=== PATIENT | male | born 1985 | race Caucasian/White ===

== ENCOUNTER 2017-11-18 20:59 | Emergency (ER) | payer SELFPAY ==
[~2017-11-18] VITALS: Ht 157.5 cm; Wt 70.3 kg
--- NOTE | 2017-11-18 22:30 | NUR ---
PT CAME FROM HOME C/O OF COUGH X 3 WEEKS WITH SEVERE PAIN ON THE BACK AND SIDES. DENIES CP, TRAUMA. VSS. SEEN BY DR. STREET FOR EVAL. DENIES FEVER. SAFETY AND COMFORT MEASURES PROVIDED. WILL MONITOR.
--- NOTE | 2017-11-18 23:15 | NUR ---
IV ACCESS STARTED. BLOOD DRAWN FOR LABS.
--- NOTE | 2017-11-18 23:26 | NUR ---
FAXED MED ORDER TO NURSING SUP.
[2017-11-18 23:27] LABS: BASOPHILS % (AUTO) 0.4 % (0.0-2.0); EOSINOPHILS # (AUTO) 0.1 /CMM (0.0-0.7); EOSINOPHILS % (AUTO) 1.1 % (0.0-6.0); HEMATOCRIT 43 % (39-51); HEMOGLOBIN 14.4 g/dL (13.5-17.5); LYMPHOCYTES # (AUTO) 1.2 /CMM (0.8-4.8); LYMPHOCYTES % (AUTO) 11.5 % (20.0-44.0); MEAN CORPUSCULAR HEMOGLOBIN 29 PG (26.0-33.0); MEAN CORPUSCULAR HGB CONC 34 g/dl (31.0-36.0); MEAN CORPUSCULAR VOLUME 86 fL (80-96); MONOCYTES # (AUTO) 1.4 /CMM (0.1-1.30); MONOCYTES % (AUTO) 13.3 % (2.0-12.0); NEUTROPHILS # (AUTO) 7.7 /CMM (1.8-8.9); NEUTROPHILS % (AUTO) 73.7 % (43.0-81.0); PLATELET COUNT (AUTO) 301 /CMM (150-450); RDW COEFFICIENT OF VARIATION 13.8 (11.5-15.0); RED BLOOD CELL COUNT(AUTO) 4.97 MIL/uL (4.5-6.0); WHITE BLOOD COUNT (AUTO) 10.4 K/uL (4.3-11.0)
[2017-11-18] MEDS ORDERED: CODEINE/PROMETHAZINE HCL 5 ML UDC PO ONE (23:30)
[2017-11-18 23:41] LABS: CALCIUM, SERUM 8.5 mg/dL (8.5-10.1); POTASSIUM 3.6 mmol/L (3.5-5.1)
[2017-11-19 00:22] LABS: D-DIMER 0.4 mg/L(FEU (0.17-0.50); INR 0.93 (0.87-1.13)
[2017-11-19] MEDS ORDERED: CODEINE/PROMETHAZINE HCL 5 ML UDC ONE (00:58)
--- NOTE | 2017-11-19 01:20 | NUR ---
DOCUMENTED MEDICATION ON ER MD ORDER; STOCK ORDER NOT GIVEN.
--- NOTE | 2017-11-19 02:42 | NUR ---
IV removed. Catheter intact and site benign. Pressure and 4x4 applied to site. No bleeding noted. Patient discharged to home in stable condition. Written and verbal after care instructions given. Patient verbalizes understanding of instruction. ambulatory with a steady gait
[2017-11-19 02:43] VITALS: BP 127/86
== END 2017-11-19 02:43 | disposition home or self-care (01) ==
LOC: ER 21:02
DX: J20.9 Acute bronchitis, unspecified (principal)
CPT/HCPCS: 36415; 71045; 80048; 85025; 85378; 85730; 99285; A4606; Z7610

== ENCOUNTER 2020-12-22 20:21 | Emergency (ER) | payer MEDICAID ==
[~2020-12-22] VITALS: Ht 160 cm; Wt 76.2 kg
--- NOTE | 2020-12-22 20:43 | NUR ---
PT AAOX4. BIBSELF C/O EPIGASTRIC PAIN X 3-4 MONTHS. PT PLACED IN BED 9 ON MONITOR AND PULSE OX. VSS. AWAITING ORDERS.
--- NOTE | 2020-12-22 21:20 | NUR ---
US TECH AT BED SIDE
[2020-12-22] MEDS ORDERED: IV NS 0.9% 1,000 ML BAG IV ONE (21:30)
--- NOTE | 2020-12-22 21:30 | NUR ---
US AT BEDSIDE
[2020-12-22 21:38] LABS: BASOPHILS % (AUTO) 0.5 % (0.0-2.0); EOSINOPHILS % (AUTO) 5.7 % (0.0-6.0); HEMATOCRIT 41 % (39-51); HEMOGLOBIN 13.4 g/dL (13.5-17.5); LYMPHOCYTES % (AUTO) 30.4 % (20.0-44.0); MEAN CORPUSCULAR HGB CONC 33 g/dl (31.0-36.0); MEAN CORPUSCULAR VOLUME 87 fL (80-96); MONOCYTES # (AUTO) 0.7 /CMM (0.1-1.30); MONOCYTES % (AUTO) 11.3 % (2.0-12.0); NEUTROPHILS # (AUTO) 3.4 /CMM (1.8-8.9); NEUTROPHILS % (AUTO) 52.1 % (43.0-81.0); PLATELET COUNT (AUTO) 276 /CMM (150-450); RED BLOOD CELL COUNT(AUTO) 4.68 MIL/uL (4.5-6.0); WHITE BLOOD COUNT (AUTO) 6.6 K/uL (4.3-11.0)
[2020-12-22 21:53] LABS: CALCIUM, SERUM 8.6 mg/dL (8.5-10.1); CREATININE 0.9 mg/dL (0.6-1.3); POTASSIUM 3.6 mmol/L (3.5-5.1)
[2020-12-22 22:01] LABS: ALBUMIN 3.2 g/dL (3.4-5.0); BILIRUBIN,DIRECT 0.1 mg/dL (0.0-0.2); BILIRUBIN,TOTAL 0.5 mg/dL (0.2-1.0); TOTAL PROTEIN, SERUM 6.4 g/dL (6.4-8.2)
[2020-12-22] MEDS ORDERED: FAMO-131 PO (22:26)
[2020-12-22] MEDS ORDERED: LIDOCAINE VISCOUS 2% UD 15 ML UDC ONE (22:27)
[2020-12-22] MEDS ORDERED: MAG HYDROX/AL HYDROX/SIMETH 30 ML UDC ONE (22:27)
[2020-12-22] MEDS ORDERED: FAMOTIDINE/PF INJ 20 MG/2 ML VIAL IV ONE ×2 (22:27→22:30)
[2020-12-22] MEDS ORDERED: LIDOCAINE VISCOUS 2% UD 15 ML UDC MM ONE (22:30)
[2020-12-22] MEDS ORDERED: MAG HYDROX/AL HYDROX/SIMETH 30 ML UDC PO ONE (22:30)
[2020-12-22 22:50] VITALS: BP 119/76
--- NOTE | 2020-12-22 22:50 | NUR ---
IV removed. Catheter intact and site benign. Pressure and 4x4 applied to site. No bleeding noted.
--- NOTE | 2020-12-22 22:50 | NUR ---
Patient discharged to home in stable condition. Written and verbal after care instructions given. Patient verbalizes understanding of instruction. Pt ambulated out of ED. VSS.
== END 2020-12-22 22:51 | disposition home or self-care (01) ==
LOC: ER 20:24
DX: R10.13 Epigastric pain (principal); K21.9 Gastro-esophageal reflux disease without esophagitis; R11.2 Nausea with vomiting, unspecified; K75.81 Nonalcoholic steatohepatitis (NASH); R16.0 Hepatomegaly, not elsewhere classified; Z79.899 Other long term (current) drug therapy
CPT/HCPCS: 36415; 76705; 80048; 80076; 83690; 85025; 96361; 96374; 99284; J3490; J7030

== ENCOUNTER → 2021-11-19 | Emergency (ER) | payer MEDICAID ==
[~2021-11-19] VITALS: Ht 160 cm; Wt 77.1 kg
[~2021-11-19] MED LIST: FAMO-131 PO; LIDOCAINE VISCOUS 2% UD 15 ML UDC MM ONE; LIDOCAINE VISCOUS 2% UD 15 ML UDC ONE; MAG HYDROX/AL HYDROX/SIMETH 30 ML UDC ONE; MAG HYDROX/AL HYDROX/SIMETH 30 ML UDC PO ONE; ONDANSETRON 4 MG TAB.RAPDIS ONE; ONDANSETRON 4 MG TAB.RAPDIS SL ONE
[2021-11-19 22:07] VITALS: BP 131/72
--- NOTE | 2021-11-19 22:07 | NUR ---
PT CAME FROM HOME A/O X3 ICELANDIC SPEAKING. C/O ACID REFLUX,WITH NAUSEA X 1 DAY. DENIES ANY VOMITING AND PAIN AT THIS TIME. WATING TO BE SEEN BY .
--- NOTE | 2021-11-19 22:19 | NUR ---
AT BEDSIDE WITH PT.
--- NOTE | 2021-11-19 23:03 | NUR ---
PT STATES FEELS BETTER AFTER MEDICATION.
--- NOTE | 2021-11-19 23:04 | NUR ---
DISCHARGE INSTRUCTIONS GIVEN TO PT. PT LEFT IN STABLE CONDITION
== END | disposition home or self-care (01) ==
LOC: ER 21:50
DX: K29.70 Gastritis, unspecified, without bleeding (principal); R11.0 Nausea; Z79.899 Other long term (current) drug therapy
CPT/HCPCS: 99283; Q0162